=== PATIENT | female | born 1955 | race Caucasian/White ===

== ENCOUNTER 2017-01-30 12:47 | Emergency (ER) | payer MEDICARE ==
[~2017-01-30] VITALS: Ht 167.6 cm; Wt 59.3 kg
[~2017-01-30 12:47] MED LIST: AMOX500T2 PO; HYDR-4246 PO; MULT-933 PO
[2017-01-30 12:52] VITALS: Ht 167.6 cm; Wt 59.3 kg
--- OUTSIDE RECORDS SUMMARY | 2017-01-30 12:52 | XMS REPORT | Continuity of Care Document ---
Demographics Preferred Language Unknown Marital Status Unknown Restorationist Affiliation Unknown Race Unknown Ethnic Group Unknown Author Author [facility] Organization [facility] Address Unknown Phone Unavailable Allergies Active Description Code Type Severity Reaction Onset Reported/Identified Relationship to Patient Clinical Status Yes NO NAME AVAILABLE 28404 DRUG N/A N/A Yes No Known Drug Allergies NKDA Drug Allergy Unknown N/A 09/03/2015 Medications Problems Date Dx Coded Attending Type Code Diagnosis Diagnosed By 02/04/2014 CATINA DRAPER 174.9 02/04/2014 CATINA DRAPER 305.1 02/04/2014 CATINA DRAPER 998.32 09/03/2015 [facility], Alex W D69.6 09/03/2015 [facility], Alex W F17.210 09/03/2015 [facility], Alex W J32.9 09/03/2015 [facility], Alex W S00.11XA 09/03/2015 [facility], Alex W S00.12XA 09/03/2015 [facility], Alex W S06.5X0A 09/03/2015 [facility], Alex W S06.6X0A 09/03/2015 [facility], Alex A S09.90XA 09/03/2015 [facility], Alex W W01.10XA 09/24/2015 ELENA NEWMAN A V I62.00 Nontraumatic subdural hemorrhage, unspecified PATY, ELENA A 09/24/2015 ADINA NEWMANE A V [id number] Hospital Follow-up ADINA NEWMANE A 09/24/2015 NIKKI NEWMANLIE A V I62.00 Nontraumatic subdural hemorrhage, unspecified LEIFER, ELENA A 09/24/2015 PATY, ELENA A V I62.00 Nontraumatic subdural hemorrhage, unspecified JOHANNEFER, ELENA A Procedures Code Description Performed By Performed On 86.22 02/03/2014 86.28 02/03/2014 Results Encounters ACCT No. Visit Date/Time Discharge Status Pt. Type Provider Facility Loc./Unit Complaint [id number] 05/29/2014 13:14:00 [facility] Unknown
--- OUTSIDE RECORDS SUMMARY | 2017-01-30 12:52 | XMS REPORT | Continuity of Care Document ---
Author Author [facility] Organization [facility] Address Unknown Phone Unavailable Support Name Relationship Address Phone MARCELL CHACON MD Caregiver [address] [place] [address] [place] [id number] Unavailable CECI RODRIGUEZ Next Of [place] [address] [place] [id number] Insurance Providers Guarantor Sandra Montoya Address [address] [place] [address] Email DENIED/NO EMAIL Payer Medicare Policy Number [id number] Subscriber's Name Snadra Montoya Relationship 19 Self Advance Directives Directive Response Recorded Date/Time Advanced Directives Type None 07/24/16 1:39pm Chief Complaint and Reason for Visit Chief Complaint Ear Pain/Injury Reason for Visit Dental caries [id number] Problems Past Problems Medical Problem Onset Date Dental caries Unknown Dental infection Unknown Right foot pain Unknown Medications Current Home Medications Medication Dose Units Route Directions Days Qty Instructions Start Date Amoxicillin 500 Mg Tablet 500 Mg Oral Three Times A Day 30 Tablet 07/24/16 Hydrocodone/Acetaminophen ([place] 5-325 Tablet) 5-325 Tablet 1-2 Tab Oral Every 6 Hours for Pain 20 Tablet 07/24/16 Multivitamin (Multi-Day Vitamins) 1 Each Tablet 1 Tab Oral Daily 07/09/16 Social History Social History Problem Response Recorded Date/Time Onset Date Status Chewing Tobacco Status No 07/24/2016 1:39pm Not Applicable Not Applicable Hx Substance Use No 07/24/2016 1:39pm Not Applicable Not Applicable Hx Alcohol Use Y 2-3 TIMES/MONTH 07/24/2016 1:39pm Not Applicable Not Applicable Query Response Start Date Stop Date Smoking Status Current every day smoker Hospital Discharge Instructions No hospital discharge instructions. Plan of Care Discharge Date 07/24/16 3:00pm Disposition 01 DISCHARGED HOME, SELF-CARE Condition at Discharge Stable Instructions/Education Provided DI for Tooth Abscess DI for Tooth Decay DI for Dental Pain DI for Fractured Tooth Prescriptions See Medication Section Referrals [facility] Order Date: 1 Week Address: [facility] [address] [place] [id number] Note: FOLLOW UP WITHIN ONE WEEK FOR RE-EVALUATION AND FURTHER TREATMENT NEEDED Additional Instructions/Education 1) DRINK PLENTY OF FLUIDS, ESPECIALLY WATER 2) AMOXICILLIN 500 MG BY MOUTH THREE TIMES DAILY FOR 10 DAYS 3) MAY TAKE NORCO 5/325 ONE OR TWO EVERY 6 HOURS NEEDED FOR SEVERE PAIN 4) FOLLOW UP WITH [facility] OR DENTIST OF YOUR CHOICE WITHIN THE NEXT WEEK FOR RE-EVALUATION AND FURTHER TREATMENT Care Plan and Goals Physician Care Plan Problem: 1) DENTAL DECAY AND CARIES 2) DENTAL INFECTION Goal: Follow up with primary care provider 1) [facility] OR DENTIST OF CHOICE Instructions: Take medications and follow care plan as discussed/written Functional Status No functional status results. Allergies, Adverse Reactions, Alerts No known allergies. Immunizations Query Response on File Recorded Date/Time DTaP Vaccine History UNK 07/24/16 1:39pm Tdap Vaccine Hx UNK, NO SKIN DISRUPTIONS 07/09/16 9:55pm Vital Signs Acute Vital Signs Vital Response Date/Time Temperature (Fahrenheit) 99.1 deg F (96.8 - 99.1) 07/24/2016 1:39pm Temperature (Calculated Celsius) 37.18258 degrees C (36.0 - 37.3) 07/24/2016 1:39pm Pulse Rate (adult) 96 bpm (60 - 100) 07/24/2016 3:02pm Respiratory Rate 16 breaths/min (10 - 20) 07/24/2016 3:02pm O2 Sat by Pulse Oximetry 98 % (90 - 100) 07/24/2016 3:02pm Blood Pressure 114/72 mm Hg 07/24/2016 3:02pm Height (Feet) 5 feet 07/24/2016 1:39pm Height (Inches) 6.00 inches 07/24/2016 1:39pm Weight (Kilograms) 54.100 kg 07/24/2016 1:39pm Body Mass Index (BMI) 19.0 07/24/2016 1:39pm Results Laboratory Results Test Name Result Units Flags Reference Collection Date/Time Result Date/ Time Comments White Blood Count 9.0 T/MM3 4.5-11.0 05/19/2016 12:28pm 05/19/2016 12: 41pm Red Blood Count 4.19 M/MM3 4.00-5.20 05/19/2016 12:05/19/2016 12: 41pm Hemoglobin 14.9 GM/DL 12-16 05/19/2016 12:05/19/2016 12:41pm Hematocrit 44.3 % 36-46 05/19/2016 12:05/19/2016 12:41pm Mean Corpuscular Volume 105.7 UM3 H 80-100 05/19/2016 12:2015 12:41pm Mean Corpuscular Hemoglobin 35.6 UUG H 26-34 05/19/2016 12:2015 12:41pm Mean Corpuscular Hemoglobin Concent 33.6 GM/DL 31-37 05/19/2016 12:05/19/2016 12:41pm RDW Standard Deviation 45.9 FL 36.9-50.2 05/19/2016 12:05/19/2016 12:41pm Platelet Count 208 T/MM3 130-400 05/19/2016 12:05/19/2016 12:41pm Mean Platelet Volume 8.7 UM3 L 9.4-12.4 05/19/2016 12:pm 05/19/2016 12 :41pm Neutrophils % (Manual) 92.0 % H 33-66 05/19/2016 12:05/19/2016 12: 49pm Band Neutrophils % 2.0 % 0-6 05/19/2016 12:pm 05/19/2016 12:49pm Lymphocytes % (Manual) 4.0 % L 23-45 05/19/2016 12:05/19/2016 12: 49pm Monocytes % (Manual) 2.0 % 0-9.0 05/19/2016 12:05/19/2016 12:49pm Band Neutrophils # 0.2 T/MM3 05/19/2016 12:pm 05/19/2016 12:49pm Absolute Neutrophils (Manual) 8.3 T/MM3 H 1.8-7.7 05/19/2016 12:pm 12:49pm Lymphocytes # (Manual) 0.4 T/MM3 L 1-4.8 05/19/2016 12:pm 05/19/2016 12:49pm Monocytes # (Manual) 0.2 T/MM3 0-0.8 05/19/2016 12:28pm 05/19/2016 12: 49pm Red Cell Morphology Comment ABNORMAL 05/19/2016 12:05/19/2016 12:49pm Macrocytosis 1+ 05/19/2016 12:pm 05/19/2016 12:49pm Icterus Index < 2 0-7 05/19/2016 12:05/19/2016 12:42pm Chemistry Specimen Hemolysis < 15 0-25 05/19/2016 12:05/19/2016 12:42pm 0-25: Specimen Exhibited No Hemolysis. Turbidity < 20 0-20 05/19/2016 12:05/19/2016 12:42pm Sodium Level 142 MEQ/L 134-144 05/19/2016 12:05/19/2016 12:42pm Potassium Level 3.8 MEQ/L 3.6-5 05/19/2016 12:05/19/2016 12:42pm Chloride Level 96 MEQ/L L 98-107 05/19/2016 12:05/19/2016 12:42pm Carbon Dioxide Level 29 MEQ/L 22-30 05/19/2016 12:05/19/2016 12: 42pm Anion Gap 17 MEQ/L H 5-15 05/19/2016 12:05/19/2016 12:42pm Blood Urea Nitrogen 5.0 MG/DL L 7-17 05/19/2016 12:2805/19/2016 12: 42pm Creatinine 0.5 MG/DL L 0.7-1.2 05/19/2016 12:05/19/2016 12:42pm BUN/Creatinine Ratio 10 RATIO 6-26 05/19/2016 12:05/19/2016 12: 42pm Glomerular Filtration Rate Calc 126 05/19/2016 12:05/19/2016 12:42pm Glucose Level 104 MG/DL 65-110 05/19/2016 12:05/19/2016 12:42pm Calculated Osmolality 270 MOSM/KG 261-280 05/19/2016 12:2015 12:42pm Calcium Level 9.4 MG/DL 8.4-10.2 05/19/2016 12:05/19/2016 12:42pm Total Bilirubin 1.60 MG/DL H 0.20-1.30 05/19/2016 12:28pm 05/19/2016 12: 42pm Alkaline Phosphatase 140 U/L H 38-126 05/19/2016 12:28pm 05/19/2016 12: 42pm Total Protein 7.9 G/DL 6.3-8.2 05/19/2016 12:28pm 05/19/2016 12:42pm Albumin 4.1 G/DL 3.5-5.0 05/19/2016 12:05/19/2016 12:42pm Globulin 3.8 G/DL H 2.4-3.6 05/19/2016 12:pm 05/19/2016 12:42pm Albumin/Globulin Ratio 1.1 RATIO 1.1-2.2 05/19/2016 12:28pm 05/19/2016 12:42pm Aspartate Amino Transf (AST/SGOT) 33 U/L 14-36 05/19/2016 12:28pm 05/19 12:42pm Alanine Aminotransferase (ALT/SGPT) 20 U/L 9-52 05/19/2016 12:28pm 12:42pm Carcinoembryonic Antigen 9.74 UG/L H 0-3.0 05/19/2016 12:28pm 2015 3:09pm CA 27.29 12.18 U/ML 0-37.7 05/19/2016 12:28pm 05/19/2016 1:27pm Procedures Procedure Status Date Provider(s) ROUTINE VENIPUNCTURE Completed 05/19/16 CHEST X-RAY 2VW FRONTAL&LATL Completed 05/19/16 COMPREHEN METABOLIC PANEL Completed 05/19/16 CARCINOEMBRYONIC ANTIGEN Completed 05/19/16 BL SMEAR W/DIFF WBC COUNT Completed 05/19/16 COMPLETE CBC AUTOMATED Completed 05/19/16 IMMUNOASSAY TUMOR CA 15-3 Completed 05/19/16 CT THORAX W/DYE Completed 06/11/16 CT ABDOMEN W/DYE Completed 06/11/16 BONE IMAGING WHOLE BODY Completed 06/11/16 509776"TECHNETIUM TC-99M MEDRONATE, DIAGNOSTIC, PER STUDY DO Completed 650071"INFUSION, NORMAL SALINE SOLUTION , 250 CC" Completed 06/11/16 165766"LOW OSMOLAR CONTRAST MATERIAL, 300-399 MG/ML IODINE C Completed X-RAY EXAM OF FOOT Completed 07/09/16 EMERGENCY DEPT VISIT Completed 07/09/16 Encounters Encounter Location Arrival/Admit Date Discharge/Depart Date Attending Provider Departed Emergency Room [facility] 07/24/16 1:30pm 07/24/16 3: 00pm MARCELL CHACON MD Departed Emergency Room [facility] 07/09/16 9:46pm 07/09/16 10: 36pm MARCELL CHACON MD Registered Clinic [facility] 06/11/16 7:53am LIBERTY SEPULVEDA MD Registered [facility] 05/19/16 11:59am LIBERTY SEPULVEDA MD Recent Diagnosis
--- NOTE | 2017-01-30 13:12 | NUR ---
RADIOLOGY PT TO RADIOLOGY PER WC
--- NOTE | 2017-01-30 13:19 | NUR ---
RADIOLOGY PT FROM RADIOLOGY
--- NOTE | 2017-01-30 13:20 | NUR ---
PROVIDER DR AYALA TO SEE PT
--- NOTE | 2017-01-30 13:24 | ERPDOC ---
Departure Disposition Decision Date: Jan 30, 2017 Disposition Decision Time: 13:28 Disposition: 01 DISCHARGED HOME, SELF-CARE Impression Impression Impression: Primary Impression: Right wrist sprain Encounter type: initial encounter Qualified Codes: S63.501A - Unspecified sprain of right wrist, initial encounter Severity: Moderate Condition: Stable Seen By: Physician only Patient Instructions: Wrist Sprain (ED), RICE Therapy (ED) Problems/Meds/Labs Reviewed?: Yes Medications reviewed and manag: Yes Additional Instructions: X-RAY INSTRUCTIONS: Your X-ray has been interpreted by the Emergency physician. Your X-ray will be re-read by a radiologist within 24 hours. If the interpretation differs from what you have been told, you will be notified at the phone number you provided at registration. Your local primary care physician will also receive a copy of the Radiologist's report. Recommend ibuprofen and Tylenol as needed for pain, these are both over-the- counter medications available in a grocery store or pharmacy Follow up care ordered?: Yes Mental Status: Alert, Oriented HPI General Chief Complaint: Upper Extremity Injury Stated Complaint: POSS R WRIST FX Time Seen by Provider: 13:23 Source: patient Exam Limitations: no limitations HPI Hand/Forearm Initial Comments Patient is a 61-year-old female, 2 days ago patient was standing on a chair, fell landing on her right hand and wrist. Patient increasing right wrist pain, decided today to present to the ER for evaluation. Occurred At: home Onset: Gradual, Getting worse Duration: other (2 days) Pain Scale: Now & Worst: 7/10 Allergies: Coded Allergies: No Known Allergies (Unverified , 01/30/17) Past History Past Medical History Metabolic: cancer Surgical History General: other Social History Tobacco Usage: smoke Alcohol Usage: occasionally Review of Systems Constitutional Constitutional: DENIES: fever ENMT Sinuses: DENIES: congestion Cardiovascular Cardiac: DENIES: chest pain Pulmonary Respiratory: DENIES: cough GI Upper Abdomen: DENIES: pain Lower Abdomen: DENIES: pain Musculoskeletal General: see HPI Integumentary Skin: see HPI Neurological General: DENIES: change in strength, headache, numbness, weakness Endocrine Endocrine: DENIES: heat/cold intolerance Hematologic/Lymphatic Hematologic/Lymphatic: DENIES: anemia Exam General General Nourishment: well nourished, well developed Vital Signs: Temperature: 97.6, Source: Oral, Heart Rate: 102, Respiratory Rate : 18, BP: 136/65, Pulse Oximetry: 95 Height (Feet): 5 Height (Inches): 6.00 Fastrak Hand/Forearm Hand/Forearm : Upper Extremity: Right Elbow: NOT FOUND: deformity, ecchymosis, erythema, swelling Forearm: NOT FOUND: ecchymosis, erythema, swelling, tender Wrist: swelling, tender, NOT FOUND: ecchymosis, erythema Hand: NOT FOUND: ecchymosis, erythema, swelling, tender Fingers: NOT FOUND: deformity, ecchymosis, erythema, impaired abduction, impaired adduction, impaired extension, impaired flexion, impaired grasp, rotational deformity, swelling, tender Radial Pulse: 3+ Ulnar Pulse: 3+ Neurologic RN Documented GCS Eye Opening: Verbal: Motor: Total: Differential Diagnoses Considering: Dislocation, Fracture, Scaphoid Fracture, Sprain, Strain Procedures Splinting Procedure Splint : Pre-placement NV: FOUND: good movement, good sensation Pre-Made Type: velcro Post-placement NV: FOUND: cap refill < 3 sec, good movement, good sensation Applied by: RN Progress Results/Orders Orders Medications Current ED Medications Ibuprofen (Motrin) 600 mg O ONCE PO Last administered on 01/30/17t 13:35; Start 01/30/17 at 13:30; Stop 01/30/17 at 13:31; Status DC Xray Xray : Xray: Wrist R Interpretation: Normal, Reviewed Written Report NICK AYALA MD Jan 30, 2017 13:24
[2017-01-30] MEDS ORDERED: IBUPROFEN 600 MG TABLET PO ONE (13:30)
--- OUTSIDE RECORDS SUMMARY | 2017-01-30 13:35 | XMS REPORT | Continuity of Care Document ---
Demographics Preferred Language Unknown Marital Status Unknown Gnosticist Affiliation Unknown Race Unknown Ethnic Group Unknown Author Author [facility] Organization [facility] Address Unknown Phone Unavailable Allergies Active Description Code Type Severity Reaction Onset Reported/Identified Relationship to Patient Clinical Status Yes NO NAME AVAILABLE 21767 DRUG N/A N/A Yes No Known Drug Allergies NKDA Drug Allergy Unknown N/A 09/03/2015 Medications Problems Date Dx Coded Attending Type Code Diagnosis Diagnosed By 02/04/2014 CATINA DRAPER 174.9 02/04/2014 CATINA DRAPER 305.1 02/04/2014 CATINA DRAPER 998.32 09/03/2015 [facility], Alex W D69.6 09/03/2015 [facility], Alex W F17.210 09/03/2015 [facility], Alex W J32.9 09/03/2015 [facility], Alex W S00.11XA 09/03/2015 [facility], Alex W S00.12XA 09/03/2015 [facility], Alex W S06.5X0A 09/03/2015 [facility], Alex W S06.6X0A 09/03/2015 [facility], Alex A S09.90XA 09/03/2015 [facility], Alex W W01.10XA 09/24/2015 ELENA NEWMAN A V I62.00 Nontraumatic subdural hemorrhage, unspecified PATY, ELENA A 09/24/2015 ADINA NEWMANE A V [id number] Hospital Follow-up ADINA NEWMANE A 09/24/2015 NIKKI NEWMANLIE A V I62.00 Nontraumatic subdural hemorrhage, unspecified LEIFER, ELENA A 09/24/2015 PATY, ELENA A V I62.00 Nontraumatic subdural hemorrhage, unspecified JOHANNEFER, ELENA A Procedures Code Description Performed By Performed On 86.22 02/03/2014 86.28 02/03/2014 Results Encounters ACCT No. Visit Date/Time Discharge Status Pt. Type Provider Facility Loc./Unit Complaint [id number] 05/29/2014 13:14:00 [facility] Unknown
--- NOTE | 2017-01-30 13:37 | NUR ---
SPLINT VELCRO WRIST SPLINT APPLIED
[2017-01-30 13:40] VITALS: BP 140/70; PULSE 88; RESP 16; TEMP 97.6; O2SAT 96
--- NOTE | 2017-01-30 13:40 | NUR ---
DISMISSAL DISMISSAL INSTRUCTIONS TO PT WITHOUT FURTHER QUESTIONS. PT LEFT DEPARTMENT AMBUALTORY
--- NOTE | 2017-01-30 22:23 | DI ---
Indication: ITS.REASON: PAIN AND SWELLING PROCEDURE: WRIST RIGHT 3-4 VIEWS: Encounter: Initial Comparison: None Findings: There is no acute fracture, dislocation or malalignment identified. Impression: No acute osseous abnormality. .
== END 2017-01-30 13:40 | disposition home or self-care (01) ==
LOC: ED 12:47
DX: S63.501A Unspecified sprain of right wrist, initial encounter (principal); W07.XXXA Fall from chair, initial encounter; Y93.9 Activity, unspecified; Y92.009 Unspecified place in unspecified non-institutional (private) residence as the place of occurrence of the external cause; Y99.8 Other external cause status
CPT/HCPCS: 73110; 99283; A9270; L3908